=== PATIENT | female | born 1970 | race Caucasian/White ===

== ENCOUNTER 2016-12-03 13:27 | Emergency (ER) | payer OTHER ==
[2016-12-03 13:32] VITALS: BP 148/75; PULSE 75; TEMP 98.6; BMI 27.4
--- NOTE | 2016-12-03 15:15 | PDOC ---
History of Present Illness - General Chief Complaint: Injury Stated Complaint: PAIN (WRIST) Time Seen by Provider: 12/03/16 14:01 History Source: Patient Exam Limitations: No Limitations - History of Present Illness Initial Comments: 12/03/16 15:10 46 yr female right hand dominant with left wrist pain after injury 2 months ago. Pt states she twisted her wrist and lifts heavy baby carrier often causing pain to the wrist. pt denies any direct trauma or fall. 12/03/16 15:11 Occurred: reports: other (2 months ago ) Past History - Past Medical History Allergies/Adverse Reactions: Allergies Allergy/AdvReac Type Severity Reaction Status Date / Time No Known Allergies Allergy Verified 12/03/16 13:29 Home Medications: Ambulatory Orders Naproxen [Naprosyn -] 500 mg PO BID #14 tablet 12/03/16 Asthma: No Cancer: No Cardiac Disorders: No Diabetes: No HTN: No Seizures: No Thyroid Disease: No Other medical history: none - Surgical History Appendectomy: Yes (and peritonitis) - Psycho/Social/Smoking Cessation Hx Anxiety: No Suicidal Ideation: No Smoking History: Never smoked Have you smoked in the past 12 months: No Information on smoking cessation initiated: No Hx Alcohol Use: No Drug/Substance Use Hx: No Substance Use Type: None Hx Substance Use Treatment: No *Physical Exam - Vital Signs Last Vital Signs Temp Pulse Resp BP Pulse Ox 98.6 F 75 18 148/75 100 12/03/16 13:30 12/03/16 13:30 12/03/16 13:30 12/03/16 13:30 12/03/16 13:30 - Physical Exam General Appearance: Yes: Nourished, Appropriately Dressed HEENT: positive: EOMI, LAKESHA Musculoskeletal: positive: Normal Inspection Extremity: positive: Normal Capillary Refill, Normal Inspection, Tender (distal radius distal ulna , no swelling FROM nv intact , pain with supination ) Procedures - Splinting Pre-Made Type: velcro (wrist splint left wrist placed) ED Treatment Course - ADDITIONAL ORDERS Additional order review: Laboratory Results 12/03/16 14:31 Urine HCG, Qual Negative - RADIOLOGY Radiology Studies Ordered: Category Date Time Status WRIST W/HAND-LEFT* [RAD] Stat Radiology 12/03/16 14:47 Taken Medical Decision Making - Medical Decision Making 12/03/16 19:06 cc: left wrist pain for 2 mnths after carrying and lifting heavy car seat with baby no direct trauma bony tenderness will xray to r/o fracture wrist splint placed *DC/Admit/Observation/Transfer Diagnosis at time of Disposition: Sprain of wrist, left Qualifiers: Encounter type: initial encounter Qualified Code(s): S63.502A - Unspecified sprain of left wrist, initial encounter - Discharge Dispostion Disposition: HOME Condition at time of disposition: Good - Prescriptions Prescriptions: Naproxen [Naprosyn -] 500 mg PO BID #14 tablet - Referrals Referrals: Lisbet Beltrán MD [Primary Care Provider] - Josh Simeon MD [Staff Physician] - - Patient Instructions Additional Instructions: follow with the orthopedist for follow up, call Sunday to make appointment use the splint while awake remove to bathe, you can use at night if it is comfortable take naprosyn for pain as directed - Post Discharge Activity
== END 2016-12-03 15:26 | disposition home or self-care (01) ==
LOC: JERFT 13:27
PROC: 2W3DX1Z Immobilization of Left Lower Arm using Splint (ICD-10-PCS; principal; 2016-12-03)
DX: S63.502A Unspecified sprain of left wrist, initial encounter (principal); X50.0XXA Overexertion from strenuous movement or load, initial encounter; Y93.F2 Activity, caregiving, lifting; Y92.89 Other specified places as the place of occurrence of the external cause; Y99.8 Other external cause status
CPT/HCPCS: 29125; 73110-TC-LT; 73130-TC-LT; 84703; 99281-25